=== PATIENT | female | born 1965 | race Caucasian/White ===

== ENCOUNTER 2017-10-20 23:39 | Emergency (ER) | payer OTHER ==
[2017-10-20 23:47] VITALS: BP 137/74; BMI 28.0
[2017-10-21] MEDS ORDERED: PHENERGAN INJ 25 MG IM ONE (01:30)
[2017-10-21] MEDS ORDERED: TORADOL 60 MG VIAL IM ONE (01:30)
[2017-10-21] MEDS ORDERED: PHENERGAN INJ 25 MG ONE (01:33)
[2017-10-21] MEDS ORDERED: TORADOL 60 MG VIAL ONE (01:33)
--- NOTE | 2017-10-21 01:43 | RAD ---
Right foot three views Indication: Right foot pain and swelling for 2 weeks without trauma Findings: There is mild swelling over the forefoot. There is mild midfoot degenerative change. No cor tical lucency or malalignment seen. Impression: Mild soft tissue swelling without acute osseous abnormality. Reported By:
--- NOTE | 2017-10-21 01:54 | DR.GENAD ---
HPI - PCP Primary Care Physician: ONDINA - Complaint/Symptoms Chief Complaint Doctors Comments: Patient is complaining of her right foot hurting and swelling for the past two weeks getting worst with pain when she walks. states she went to the [facility] and they told her to have her foot checked. States the pain is 8 of 10 and is worst when she walk or stand. She denies any recent trauma. States she took an Alieve about 6 pm. She smokes one pack cigarettes daily but denies alchol usage. states the pain is mainly in her right keena and foot. She denies calf pain. Chief Complaint:: RIGHT FOOT PAIN; PAIN TO FOOT X 2 WEEKS; PT IS NOT AWARE OF AN INJURY Self Treatment fo Chief Complaint: ALEVE BID - Nurses notes reviewed Nurses Notes Review: Yes - Source History Provided: Patient - Mode of Arrival Mode of Arrival: Ambulatory - Timing Onset of Chief Complaint: 10/06/17 Came on: Gradually - Duration Duration: Constant How lon Duration: Days - Location Location: right foot and ankle pain - Severity Severity: Moderate - Modifying Factors Worsens:: walking Improves:: nothing PMH - PMH Past Medical History: Yes Past Medical History: Hyperthyroidism Past Medical History Comment: BREAST CA Past Surgical History: Yes Past Surgical History Comment: CERVICAL SURGERY; SCOILOSIS; HYSTERECTOMY - Family History History of Family Medical Conditions: No - Social History Alcohol Use: None Do you use any recreational Drugs:: No Lives With: Family Lives Where: Home - infectious screening In the last 2 months have you had wt loss of >10#?: NO Have you had fever, night sweats or hemotysis?: No Have you traveled outside the country in the last 6 months?: No Isolation: Standard ROS - Review of Systems Constitutional: No Symptoms Reported. negative: See HPI, Chills, Diaphoresis, Fever, Malaise, Weakness, Irritable, Fatigue, Loss of Appetite, Other Eyes: No Symptoms Reported ENTM: No Symptoms Reported Respiratoy: No Symptoms Reported. negative: See HPI, Productive Cough, Non- Productive Cough, Moist Cough, Dry Cough, Hacking Cough, Barking Cough, Brassy Cough, Orthopnea, Short of Breath, Stridor, Wheezing, Hemoptysis, Other Cardiovascular: No Symptoms Reported. negative: See HPI, Chest Pain, Edema, Palpitations, Syncope, Cyanosis, Skin Mottling, Other Gastrointestinal/Abdominal: No Symptoms Reported. negative: See HPI, Abdominal Pain, Constipation, Diarrhea, Nausea, Vomiting, Food Intolerance, Other Genitourinary: No Symptoms Reported Neurological: No Symptoms Reported, Problems Walking (right ankle pain) Musculoskeletal: No Symptoms Reported, Right, Ankle, Foot Integumentary: No Symptoms Reported. negative: See HPI, Change in Color, Change in Hair/Nails, Dryness, Lesions, Lumps, Rash, Itching, Wound, Bruises, Juandice, Other Hematologic/Lymphatic: No Symptoms Reported. negative: See HPI, Anemia, Blood Clots, Easy Bleeding, Easy Bruising, Swollen Glands, Lymphadenopathy, Other Endocrine: No Symptoms Reported Psychiatric: No Symptoms Reported. negative: See HPI, Anxiety, Depression, Hallucinations, Excessive crying, Suicidal, Other PE - Vital Signs Vitals: Temperature 97.8 F Pulse Rate 77 Respiratory Rate 22 Blood Pressure 137/74 - General Limitations: No Limitations, Language Barrier General Appearance: Alert, Lethargic, Obtunded, In Distress - Head Head Exam: Normal Inspection, Atraumatic, Normocephalic - Eyes Eye exam: Normal Appearance, PERRL, EOMI. negative: Scleral Icterus, Conjunctival Injection, Nystagmus, Miosis, Mydrasis, Periorbital Swelling, Periorbital Tenderness, Other - ENT ENT Exam: Normal Exam, Normal Oropharynx, Normal External Ear Exam, Mucous Membranes Moist, TM's Normal Bilaterally External Ear Exam: Normal External Inspection TM/Canal Exam: Bilateral Normal Nose Exam: Normal Nose Exam Mouth Exam: Normal Inspection Throat Exam: Normal Inspection - Neck Neck Exam: Normal Inspection, Full ROM, Trachea Midline - Chest Chest Inspection: Normal Inspection, Symmetric Chest Wall Rise. negative: Tenderness, Rash, Abscess, Other - Respiratory Respiratory Exam: Normal Lung Sounds Bilat Respiratory Exam: Bilateral Clear to Auscultation - Cardiovascular Cardiovascular Exam: Regular Rate, Normal Rhythm, Normal Heart Sounds - Abdominal Exam Abdominal Exam: Normal Inspection, Normal Bowel Sounds, Soft. negative: Distention, Tenderness, Guarding, Rebound, Rigidity, Dimnished Bowel Sounds, Hyperactive Bowel Sounds, Hypoactive Bowel Sounds, Organomegaly, Trauma, Incision, Ascites, Mass, Bruit, Pulsatile Mass, Hernia, Other Abdominal Tenderness: negative: RUQ, RLQ, LUQ, LLQ, Epigastrium, Suprapubic, Diffuse, Mild, Moderate, Severe, Other - Extremities Extremities Exam: Normal Inspection, Full ROM, Tenderness (right ankle and lateral spinner tender on palpation), Normal Capillary Refill. negative: Edema, Joint Swelling, Calf Tenderness, Other - Back Back Exam: Normal Inspection, Full ROM - Neurologic Neurological Exam: Alert, Oriented X3, CN II-XII Intact, Reflexes Normal. negative: Normal Gait (gait not tested) - Psychiatric Psychiatric Exam: Normal Affect, Normal Mood. negative: Depressed, Agitated, Anxious, Flat Affect, Manic, Homicidal Ideation, Suicidal Ideation, Other - Skin Skin Exam: Warm, Dry, Intact, Normal Color ROR - Labs Reviewed Laboratory Results Reviewed?: Yes (all x-ray results reviewed and discussed with patient) - XRAY XRAY Interpreted by: Radiologist (right foot: Mild swellingover the forefoot. Mild midfoot degenerative change. No cortical lucency or malalignment. Mild soft tissue swelling without acute osseous abnormality.) - Diagnosis Discharge Problem: Right foot pain, Tendonitis of ankle or foot, Degenerative arthritis of foot - Discharge Plan Disposition: 01 HOME, SELF-CARE Condition: Stable Prescriptions: Acetaminophen/Codeine Tab [TYLENOL w/CODEINE #3 (300 MG/30 MG) *] 1 tab PO Q4- 6H PRN #24 tab PRN Reason: Pain Methylprednisolone Dosepak 4Mg [MEDROL DOSEPAK (4 mg tab x 21)] 1 josi PO ONCE # 1 josi - Follow ups/Referrals Follow ups/Referrals: [facility] [place] [Primary Care Provider] - 3 days LEN MAYER [STAFF PHYSICIAN] - 3 days - Instructions Instructions: Tendinitis and Tenosynovitis-SportsMed, Osteoarthritis, Joint Pain, [id number]
[2017-10-21] MEDS ORDERED: PREDNISONE TAB 20 MG PO ONE ×2 (02:04→02:08)
== END 2017-10-21 02:14 | disposition home or self-care (01) ==
LOC: ER 23:39
DX: M65.879 Other synovitis and tenosynovitis, unspecified ankle and foot (principal); M19.079 Primary osteoarthritis, unspecified ankle and foot; M79.671 Pain in right foot
CPT/HCPCS: 73630; 96372; 99282; 99283; J1885; J2550; J7506